=== PATIENT | female | born 1985 | race Caucasian/White ===

== ENCOUNTER 2022-08-25 11:42 | Day surgery (SDC) | payer BC ==
[2022-08-25 12:24] VITALS: BMI 31.7
[2022-08-25] MEDS ORDERED: hydrALAZINE 20 MG/ML VIAL SLOW IVP PRN (12:51)
== END 2022-08-25 16:00 | disposition home or self-care (01) ==
LOC: CSHLD/OP 11:42
PROVIDERS: ATTEND Obstetrics & Gynecology
DX: O09.523 Supervision of elderly multigravida, third trimester (principal); Z3A.39 39 weeks gestation of pregnancy; Z91.040 Latex allergy status; W10.1XXA Fall (on)(from) sidewalk curb, initial encounter
CPT/HCPCS: 99282

== ENCOUNTER 2022-09-02 08:59 | Inpatient (IN) | payer BC ==
[2022-09-02 09:32] VITALS: BMI 32.5
[2022-09-02 09:55] LABS: Fetal Membranes Rupture RUPTURE DETECTED (No Rupture)
[2022-09-02] MEDS ORDERED: hydrALAZINE 20 MG/ML VIAL SLOW IVP PRN (10:07)
[2022-09-02] MEDS ORDERED: Ibuprofen 800 MG TAB PO PRN (10:07)
[2022-09-02] MEDS ORDERED: Butorphanol Tartrate 1 MG/ML VIAL SLOW IVP PRN (10:07)
[2022-09-02] MEDS ORDERED: Ondansetron PF 4 MG/2 ML Vial IVP PRN ×3 (10:07→21:22)
[2022-09-02] MEDS ORDERED: HYDROcodone/Acetaminophen 5/325 mg Tablet PO PRN ×2 (10:07)
[2022-09-02] MEDS ORDERED: Promethazine HCl 25 MG/ML VIAL IM PRN ×3 (10:07→21:22)
[2022-09-02] MEDS ORDERED: Lidocaine 1% (PF) 30 ML VIAL SC PRN (10:07)
[2022-09-02] MEDS ORDERED: Lactated Ringer's 1,000 ML IV SCH (10:15)
[2022-09-02] MEDS ORDERED: NS w/ Oxytocin 30 units 500 ML IV SCH ×2 (10:15)
[2022-09-02 10:55] LABS: Hemoglobin 12.3 g/dL (12.0-15.5); Mean Corpuscular HGB CONC 34.6 g/dL (32.0-36.0); Mean Corpuscular Hemoglobin 34.2 pg (27.0-33.0); Mean Corpuscular Volume 98.6 fl (81.6-98.3); Mean Platelet Volume 10.5 fl (7.4-10.4); Platelet Count 230 10x3/uL (150-450); RBC Distribution Width 11.8 % (11.5-14.5)
[2022-09-02 11:32] LABS: Syphilis Antibody Nonreactive (Nonreactive); Syphilis Antibody Index 0.04 S/CO (<1.00 Non-Reactive)
[2022-09-02 11:34] LABS: HBSAg Index 0.14 S/CO (0-0.99); Hep B Surf Ag Non-Reactive S/CO (NonReactive)
[2022-09-02] MEDS ORDERED: Misoprostol 100 MCG TAB PO SCH (11:45)
[2022-09-02] MEDS ORDERED: Fentanyl 2 mcg/Bup 0.1% Cadd 100 ML ONE (17:05)
[2022-09-02] MEDS ORDERED: Naloxone HCl 0.4 mg/ml Vial IVP PRN ×4 (19:20→21:22)
[2022-09-02] MEDS ORDERED: diphenhydrAMINE 50 MG/ML VIAL IVP PRN ×2 (19:20→21:22)
[2022-09-02] MEDS ORDERED: Lactated Ringer's 500 ML IV PRN ×2 (19:20→21:22)
[2022-09-02] MEDS ORDERED: Acetaminophen 325 MG TAB PO PRN ×2 (19:20→21:22)
[2022-09-02] MEDS ORDERED: Moisturizing Cream (Eucerin) 113 GM JAR TOP PRN ×2 (19:20→21:22)
[2022-09-02] MEDS ORDERED: Fentanyl 2 mcg/Bupivacaine 0.1% Cassette 100 ML EPIDURAL SCH ×2 (19:30→21:30)
[2022-09-02] MEDS ORDERED: Communication Order-Pharmacy FS SCH ×2 (19:30→21:30)
[2022-09-02] MEDS: ePHEDrine Sulfate 50 MG/10 ML VIAL SLOW IVP PRN ×2 (21:07→23:02)
[2022-09-02] MEDS ORDERED: ePHEDrine Sulfate 50 MG/10 ML VIAL SLOW IVP PRN (21:22)
[2022-09-02 22:32] LABS: SARS-CoV-2 NAA Rapid Test Not Detected (NotDetected)
[2022-09-03] MEDS ORDERED: Misoprostol 200 MCG TAB ONE (01:22)
[2022-09-03] MEDS ORDERED: Carboprost 250 MCG/ML AMP ONE (01:22)
[2022-09-03] MEDS ORDERED: Methylergonovine 0.2 MG/ML VIAL ONE (01:22)
[2022-09-03] MEDS ORDERED: Bisacodyl 10 MG SUPP PR PRN (02:04)
[2022-09-03] MEDS ORDERED: Milk Of Magnesia 30 ML UDCUP PO PRN (02:04)
[2022-09-03] MEDS ORDERED: hydrALAZINE 20 MG/ML VIAL SLOW IVP PRN (02:04)
[2022-09-03] MEDS ORDERED: Boostrix 0.5 ML (Tdap) VIAL (>/=7 yrs of age) IM ONE (02:04)
[2022-09-03] MEDS ORDERED: Acetaminophen 500 MG TAB PO PRN (02:05)
[2022-09-03 02:47] LABS: Hemoglobin 11.6 g/dL (12.0-15.5)
[2022-09-03] MEDS: Ibuprofen 800 MG TAB PO SCH ×3 (05:00→21:18)
[2022-09-03] MEDS: Docusate 100 MG CAP PO SCH ×2 (08:51→21:18)
[2022-09-03] MEDS ORDERED: Benzocaine-Menthol 82.5 ML CAN TOP PRN (09:06)
[2022-09-03] MEDS: Ferrous Sulfate 325 MG TAB PO SCH ×2 (11:22→16:45)
[2022-09-04] MEDS: Ibuprofen 800 MG TAB PO SCH (05:13)
[2022-09-04 07:40] VITALS: BP 118/67; TEMP 97.7
[2022-09-04] MEDS: Docusate 100 MG CAP PO SCH (08:15)
[2022-09-04] MEDS: Ferrous Sulfate 325 MG TAB PO SCH (08:15)
== END 2022-09-04 11:00 | disposition home or self-care (01) | DRG 807 ==
LOC: CSHLD/OP 08:59 → CSHLD 10:22 → CSHPP 09-03 04:25
PROVIDERS: ADMIT Obstetrics & Gynecology; ATTEND Obstetrics & Gynecology
PROC: 3E0P7VZ Introduction of Hormone into Female Reproductive, Via Natural or Artificial Opening (ICD-10-PCS; 2022-09-02)
PROC: 10E0XZZ Delivery of Products of Conception, External Approach (ICD-10-PCS; principal; 2022-09-03)
DX: O42.02 Full-term premature rupture of membranes, onset of labor within 24 hours of rupture (principal); Z37.0 Single live birth; Z20.822 Contact with and (suspected) exposure to COVID-19; Z3A.40 40 weeks gestation of pregnancy; Z91.040 Latex allergy status; Z88.1 Allergy status to other antibiotic agents; O71.82 Other specified trauma to perineum and vulva; O70.0 First degree perineal laceration during delivery
CPT/HCPCS: 36415; 51702; 84112; 85014; 85018; 85027; 86780; 86850; 86900; 86901; 87340; 99285; J2590; U0002